=== PATIENT | female | born 1960 | race Caucasian/White ===

== ENCOUNTER → 2023-12-02 09:01 | Outpatient (REF) | payer OTHER, SELFPAY | LOC: HWWDC 09:01 | PROVIDERS: ATTENDING PHYSICIAN Student in an Organized Health Care Education/Training Program; REFERRING PHYSICIAN Obstetrics & Gynecology | DX: Z12.31 Encounter for screening mammogram for malignant neoplasm of breast (principal) | CPT/HCPCS: 77063; 77067 ==

== ENCOUNTER 2024-02-16 13:58 | Emergency (ER) | payer BC, SELFPAY ==
[2024-02-16 14:00] VITALS: BMI 26.1
[2024-02-16 14:01] VITALS: BP 188/88
[2024-02-16 14:02] VITALS: BP 188/88
[2024-02-16 14:15] LABS: % Basophils 0.2 % (0-2); % Eosinophils 0.1 % (0-6); % Immature Granulocytes 2.4 % (0-0.5); % Lymphocytes 20.8 % (20.5-51.1); % Neutrophils 68.5 % (42.2-75.2); Absolute Immature Granulocytes 0.4 10^3/uL (0-0.05); Absolute Lymphocytes 3.7 10^3/uL (1.2-3.4); Absolute Monocytes 1.4 10^3/uL (0.1-0.6); Absolute Neutrophils 12.1 10^3/uL (1.4-6.5); Hematocrit 47.4 % (37.0-47.0); Hemoglobin 16.2 g/dL (12.0-16.0); Mean Corp Hgb Conc. 34.2 g/dL (33.0-37.0); Mean Corpuscular Hgb 29.6 pg (27.0-31.0); Mean Corpuscular Volume 86.5 fL (81.0-99.0); Nucleated Red Blood Cells % 0 %; Platelet Count 316 10^3/uL (130-400); Red Blood Cell Count 5.48 10^6/uL (4.20-5.40); Red Cell Dist. Width 12.8 % (11.5-14.5); White Blood Cell Count 17.7 10^3/uL (4.8-10.8)
[2024-02-16] MEDS: NSS 1000 IV (14:21)
[2024-02-16] MEDS: ZOFRAN 4 MG IV (14:22)
[2024-02-16 14:35] LABS: ALT (SGPT) 36 U/L (0-35); AST (SGOT) 23 U/L (14-36); Albumin 4.8 g/dl (3.5-5.0); Alkaline Phosphatase 113 U/L (38-126); Blood Urea Nitrogen 18 mg/dl (7-17); Calcium 10.2 mg/dl (8.4-10.2); Carbon Dioxide 24 mmol/L (22-30); Chloride 102 mmol/L (98-107); Estimated Creatinine Clearance 71 ml/min; Glucose 104 mg/dl (70-99); Potassium 3.8 mmol/L (3.5-5.1); Sodium 137 mmol/L (135-145); Total Bilirubin 0.5 mg/dl (0.2-1.3); Total Protein 7.4 g/dl (6.3-8.2); eGFR > 60.00
[2024-02-16 15:00] VITALS: BP 167/79
[2024-02-16] MEDS: TORADOL 30 MG IV (16:30)
--- NOTE | 2024-02-16 16:37 | ED.GENMED ---
History of Present Illness
General
Chief Complaint: Headache
Source: patient
Exam Limitations: none
Time Seen by Provider: 02/16/24 14:05
Nursing documentation reviewed up to this point in time: agreed with
Travel History
Have you had any contact with someone who has COVID-19?: No
Do you have any symptoms of coronavirus? Fever > 100 degrees, chills, cough, shortness of breath, sore throat, loss of taste or smell, muscle aches, or headache?: No
History of Present Illness
History of Present Illness:
Patient to ED with sudden onset of bilateral head pressure. States sghe feel like her head is pulsating. No dizziness or blurred vision. Brought to ED via EMS for eval. Denies fever/chills. Taking oral steroids for bronchitis. No SOB,
cp/pressure
Past History
Past History
ED Past Medical History: GERD (Pepcid), Seizures (take Keppra) and Psychiatric (anxiety : Lexapro)
ED Past Surgical History: Cholecystectomy and Other
Social History
Personal:
Living: with family
Employment: Employed ([employer])
Review of Systems
Review of Systems
Allergies reviewed?: Yes
All Other Systems: ROS reviewed and negative except as documented in HPI and ROS
Constitutional: Reports no symptoms
EENT: Reports no symptoms
Respiratory: Reports cough (dry cough)
Cardiac: Reports no symptoms
ABD/GI: Reports nausea
: Reports no symptoms
Musculoskeletal: Reports no symptoms
Skin: Reports no symptoms
Neurological: Reports headache (bilateral head pressure)
Psychiatric: Reports no symptoms
Phy Exam
General Physical Exam
General Presentation: well appearing and no apparent distress
General age: appears stated age
General Skin: warm and dry
General Habitus: normal
ENT Exam
ENT Exam: EOMI and TM's normal
Eye Exam
Eye Exam: PERRL, EOMI, conjunctiva normal and globe normal
Cardiovascular Exam
Cardiovascular Exam: regular rate/rhythm and no edema
Pulmonary Exam
Pulmonary Exam: lungs clear and no respiratory distress
Neurological Exam
Neurological Exam: alert, oriented x3, CN II-XII intact, no motor deficits, no sensory deficits, speech normal and normal gait
Mental
Mental Status: oriented to person, oriented to place, oriented to time and usual mental status
Describe Speech: normal speech
Cranial
Cranial Nerves: normal and no facial asymetry
EOM (CN3/4/6): intact
Motor
Seizure Activity: none
Tremors: none
Other Movement Disorders: none
Right upper extremity: 4
Right lower extremity: 4
Left upper extremity: 4
Left lower extremity: 4
Bilateral upper extremities: 4
Bilateral lower extremities: 4
Sensory
Sensory Exam: intact
Cerebellar
Cerebellar Function: normal finger to nose and normal Romberg test
Musculoskeletal Exam
Musculoskeletal Exam: full ROM
Skin Exam
Skin Exam: normal color, warm/dry and no rash
Psychiatric Exam
Psychiatric Exam: normal mood/affect
Course
Orders/Labs/Results
Orders:
Orders
02/16/24 14:[address] [CT Head W/o Iv Contrast] Urgent
Comment:
Reason For Exam: headache
02/16/24 14:06
Complete Blood Count/With Diff Urgent
Comprehensive Metabolic Panel Urgent
02/16/24 14:09
EKG [Electrocardiogram (*1)] Urgent
Reason for Study: Chest Pain
EKG- Treatment ONCE
02/16/24 14:10
0.9% Sodium Chloride 1000 ml [Nss] 1,000 ml IV BOLUS
Ondansetron Injectable [Zofran] 4 mg IV NOW STA
02/16/24 14:45
Lactic Acid Urgent
02/16/24 14:52
CR Chest - 2 Views Urgent
Comment:
Reason For Exam: cough
02/16/24 16:27
Ketorolac [Toradol] 30 mg IV NOW STA
Abnormal Lab Results
02/16/24 02/16/24
14:06 14:45
WBC 17.7 H 10^3/uL
(4.8-10.8)
RBC 5.48 H 10^6/uL
(4.20-5.40)
Hgb 16.2 H g/dL
(12.0-16.0)
Hct 47.4 H %
(37.0-47.0)
MPV 11.0 H fL
(7.4-10.4)
Abs Immat Gran (auto) 0.4 H 10^3/uL
(0-0.05)
Absolute Neuts (auto) 12.1 H 10^3/uL
(1.4-6.5)
Absolute Lymphs (auto) 3.7 H 10^3/uL
(1.2-3.4)
Absolute Monos (auto) 1.4 H 10^3/uL
(0.1-0.6)
Immature Gran % 2.4 H %
(0-0.5)
BUN 18 H mg/dl
(7-17)
Glucose 104 H mg/dl
(70-99)
Lactic Acid 3.0 H mmol/L
(0.7-2.0)
ALT 36 H U/L
(0-35)
02/16/24 14:06
02/16/24 14:06
Vital Signs
Initial and Last Documented VS:
Initial Vital Signs
BP
188/88
02/16/24 14:01
Last Documented Vital Signs
Temp Pulse Resp BP Pulse Ox
97.5 F 58 17 167/79 97
02/16/24 14:02 02/16/24 15:45 02/16/24 15:45 02/16/24 15:00 02/16/24 14:02
*Radiology
Radiology exam reviewed: radiology read reviewed
*Pulse Oximetry
Patient hypoxic: no
*Critical Care Note
Total Time (30-74mins, 75-104mins- exclusive of procedures): Not Applicable
ED Attending Note
-
Portions of this chart may have been created with voice recognition software.� Occasional wrong word or��sound alike� substitutions may have occurred due to the inherent limitations of voice recognition software.
Discharge Plan
Departure
Patient Disposition: Home (Routine Discharge)
Date of Disposition: 02/16/24
Time of Disposition: 16:37
Patient with high blood pressure during this ER visit?: No
Condition: Good
Covid-19: Not Applicable
Discharge Problem:
Headache
Instructions: Headache, Adult (DC)
Prescriptions:
No Action
clobetasol 0.05 % Cream
1 applic TOPICAL PRN PRN (Reason: psoriasis)
estradiol [Estrace] 0.01 % (0.1 mg/gram) Cream
1 g VAGINAL QWEEK
albuterol sulfate 90 mcg/actuation Hfa Aerosol Inhaler
2 puff INHALATION Q6H PRN (Reason: asthma)
escitalopram oxalate [Lexapro] 10 mg Tablet
10 mg PO DAILY
ezetimibe [Zetia] 10 mg Tablet
10 mg PO DAILY
levetiracetam [Keppra XR] 500 mg Tablet Extended Release 24 Hr
1,000 mg PO DAILY
Myrbetriq 50 mg Tablet Extended Release 24 Hr
50 mg PO DAILY
fluticasone furoate-vilanterol [Breo Ellipta] 200-25 mcg/dose Blister With Device
1 inh INHALATION DAILY
omeprazole 20 mg Tablet,Disintegrat, Delay Rel
20 mg PO DAILY
cholecalciferol (vitamin D3) [Vitamin D3] 25 mcg (1,000 unit) Tablet
1,000 mcg PO DAILY
Referrals:
Anu More MD [Family Provider] - Tomorrow
Interventions
Interventions:
*Risk Screen - Suicide Last Done: 02/16/24 14:02
*General Assessment Last Done: 02/16/24 14:02
*Neglect/Abuse Screening Last Done: 02/16/24 14:02
ED- Fall Risk Assessment Last Done: 02/16/24 14:02
*ED COVID-19 Vaccine History Last Done: 02/16/24 14:02
ED- Neurological Assessment Last Done: 02/16/24 14:02
Discharge Date and Time
Print Language: GREENLANDIC
== END 2024-02-16 17:06 | disposition home or self-care (01) ==
LOC: EMR 13:58
PROVIDERS: Nurse Practitioner; EMERGENCY PHYSICIAN Emergency Medicine; FAMILY PHYSICIAN Student in an Organized Health Care Education/Training Program
DX: R51.9 Headache, unspecified (principal); R05.9 Cough, unspecified; R11.0 Nausea
CPT/HCPCS: 99285; 96374; 96375; 96361; 70450; 71046; 80053; 83605; 85025; 93005

== ENCOUNTER → 2024-03-27 09:44 | Outpatient (REF) | payer BC, SELFPAY | LOC: MRI 3T 09:44 | PROVIDERS: ATTENDING PHYSICIAN Student in an Organized Health Care Education/Training Program | DX: R51.9 Headache, unspecified (principal) | CPT/HCPCS: 70551 ==

== ENCOUNTER → 2024-07-09 12:21 | Outpatient (REF) | payer BC, SELFPAY | LOC: HWRAD 12:21 | PROVIDERS: ATTENDING PHYSICIAN Internal Medicine Gastroenterology; FAMILY PHYSICIAN Student in an Organized Health Care Education/Training Program | DX: R10.32 Left lower quadrant pain (principal) | CPT/HCPCS: 74018 ==

== ENCOUNTER → 2024-08-31 09:15 | Outpatient (REF) | payer BC, SELFPAY | LOC: HWRAD 09:15 | PROVIDERS: ATTENDING PHYSICIAN Internal Medicine Gastroenterology; FAMILY PHYSICIAN Student in an Organized Health Care Education/Training Program | DX: R10.32 Left lower quadrant pain (principal) | CPT/HCPCS: 74177; Q9967 ==

== ENCOUNTER → 2025-01-25 12:32 | Outpatient (REF) | payer BC, SELFPAY | LOC: RAD 12:32 | PROVIDERS: ATTENDING PHYSICIAN Internal Medicine | DX: R55 Syncope and collapse (principal); D75.1 Secondary polycythemia; G44.52 New daily persistent headache (NDPH) | CPT/HCPCS: 70450 ==

== ENCOUNTER → 2025-02-03 15:56 | Outpatient (REF) | payer BC, SELFPAY ==
[2025-02-03 16:33] LABS: C-Reactive Protein < 5.00 mg/L (0.0-10.00)
[2025-02-03 17:33] LABS: Erythrocyte Sed Rate 2 mm/hour (0-20)
== END ==
LOC: REG 15:56
PROVIDERS: ATTENDING PHYSICIAN Ophthalmology; FAMILY PHYSICIAN Student in an Organized Health Care Education/Training Program
DX: R51.9 Headache, unspecified (principal)
CPT/HCPCS: 36415; 85652; 86140

== ENCOUNTER → 2025-02-08 13:25 | Outpatient (REF) | payer BC, SELFPAY | LOC: RCS 13:25 | PROVIDERS: ATTENDING PHYSICIAN Physician Assistant; FAMILY PHYSICIAN Student in an Organized Health Care Education/Training Program | DX: R07.9 Chest pain, unspecified (principal); R55 Syncope and collapse; R06.09 Other forms of dyspnea | CPT/HCPCS: 93017; 93350 ==

== ENCOUNTER → 2025-02-11 10:28 | Outpatient (REF) | payer BC, SELFPAY | LOC: HWWDC 10:28 | PROVIDERS: ATTENDING PHYSICIAN Internal Medicine; FAMILY PHYSICIAN Student in an Organized Health Care Education/Training Program; REFERRING PHYSICIAN Obstetrics & Gynecology | DX: M81.0 Age-related osteoporosis without current pathological fracture (principal); Z12.31 Encounter for screening mammogram for malignant neoplasm of breast | CPT/HCPCS: 77063; 77067; 77080 ==

== ENCOUNTER → 2025-02-15 10:20 | Outpatient (REF) | payer BC, SELFPAY | LOC: HWRCS 10:20 | PROVIDERS: ATTENDING PHYSICIAN Physician Assistant; FAMILY PHYSICIAN Student in an Organized Health Care Education/Training Program | DX: R07.9 Chest pain, unspecified (principal); R55 Syncope and collapse; R06.09 Other forms of dyspnea | CPT/HCPCS: 93306 ==

== ENCOUNTER → 2025-07-28 14:26 | Outpatient (REF) | payer BC, SELFPAY | LOC: DHSLP 14:26 | PROVIDERS: ATTENDING PHYSICIAN Internal Medicine Critical Care Medicine; FAMILY PHYSICIAN Student in an Organized Health Care Education/Training Program | DX: G47.61 Periodic limb movement disorder (principal); G47.00 Insomnia, unspecified; R06.83 Snoring; R09.02 Hypoxemia | CPT/HCPCS: 95810 ==